=== PATIENT | male | born 1990 | race Caucasian/White ===

== ENCOUNTER → 2024-11-19 16:27 | Outpatient (REF) | payer OTHER, SELFPAY | LOC: HWRAD 16:27 | PROVIDERS: ATTENDING PHYSICIAN Nurse Practitioner Adult Health | DX: R07.9 Chest pain, unspecified (principal); Z77.098 Contact with and (suspected) exposure to other hazardous, chiefly nonmedicinal, chemicals | CPT/HCPCS: 71046 ==